=== PATIENT | female | born 1965 | race African-American/Black ===

== ENCOUNTER 2017-04-06 15:28 | Emergency (ER) | payer MEDICARE, MEDICAID ==
[~2017-04-06] VITALS: Ht 157.5 cm; Wt 104.4 kg
[~2017-04-06 15:28] MED LIST: COMB0.2S EACH EYE; HYDR50CA PO; PROP20TA3 PO; TRIH5TAB2 PO; ZIPR1CAP12 PO
[2017-04-06 15:35] VITALS: BP 147/72; PULSE 76; RESP 16; TEMP 98.1; O2SAT 96
[2017-04-06] MEDS ORDERED: PERM5CRE11 TOPICAL (16:03)
--- NOTE | 2017-04-06 16:05 | PD ---
HPI Chief Complaint: Skin Problem Time Seen by Provider: 15:57 Travel History International Travel<30 days: No Contact w/Intl Traveler<30days: No Traveled to known affect area: No History of Present Illness HPI 51-year-old female presents emergency department requesting treatment of scabies. Patient reports her daughter who is a healthcare worker was diagnosed with scabies several days ago and they were instructed on family members needed to be treated. Patient reports she does not have a rash but has itching between the webs of her fingers. She has no other medical complaint. PFSH Past Medical History Bipolar Disorder: Yes Depression: Yes Diabetes: Yes (HUMULIN 70/30) Patient Takes Glucophage: No Diminished Hearing: No Psychiatric: Yes Reproductive: Yes Immunizations Current: Yes Tetanus Vaccination: Unknown Influenza Vaccination: No ?: Not Menopausal: Yes : 3 Para: 2 : 1 Tubal Ligation: Yes Past Surgical History Abdominal Surgery: No Cardiac Surgery: No Ear Surgery: No Endocrine Surgery: No Eye Surgery: No Genitourinary Surgery: No Gynecologic Surgery: Yes Oral Surgery: No Thoracic Surgery: No Other Surgery: Yes (1995 GENITAL WARTS) Social History Alcohol Use: No Tobacco Use: No Substance Use: No Allergies-Medications (Allergen,Severity, Reaction): Coded Allergies: Sulfa (Sulfonamide Antibiotics) (Unverified Allergy, Severe, HIVES, ) aspirin (Unverified Allergy, Severe, HEADACHE, 02/24/17) Reported Meds & Prescriptions Reported Meds & Active Scripts Active Elimite Topical (Permethrin) 5% Cream 1 Applic TOPICAL ONCE Combigan Opth Drops (Brimonidine-Timolol Opth Drops) 0.2-0.5% Soln 1 Drop EACH EYE BID Reported Hydroxyzine Pamoate 50 Mg Cap 50 Mg PO HS Ziprasidone 80 Mg Cap 80 Mg PO DAILY Trihexyphenidyl (Trihexyphenidyl HCl) 5 Mg Tab 10 Mg PO DAILY Propranolol (Propranolol HCl) 20 Mg Tab 20 Mg PO DAILY Review of Systems Except as stated in HPI: all other systems reviewed are Neg Physical Exam Narrative GENERAL: Well-nourished, well-developed patient. SKIN: Focused skin assessment warm/dry. HEAD: Normocephalic. EYES: No scleral icterus. No injection or drainage. NECK: Supple, trachea midline. No JVD or lymphadenopathy. CARDIOVASCULAR: Regular rate and rhythm without murmurs, gallops, or rubs. RESPIRATORY: Breath sounds equal bilaterally. No accessory muscle use. Data Data Last Documented VS Vital Signs Date Time Temp Pulse Resp B/P (MAP) Pulse Ox O2 Delivery O2 Flow Rate FiO2 04/06/17 15:35 98.1 76 16 147/72 (97) 96 MDM Medical Decision Making Medical Screen Exam Complete: Yes Emergency Medical Condition: Yes Differential Diagnosis Scabies exposure Narrative Course 51-year-old female presents emergency department requesting treatment of scabies. Her daughter who lives with her diagnosed with scabies several days ago. Patient denies rash reports some itching to the webs of her fingers. Patient will be given prescription for Elimite. Scabies treatment discussed with patient and family. Diagnosis Primary Impression: Scabies exposure Referrals: [facility] Scripts Permethrin Topical (Elimite Topical) 5% Cream 1 APPLIC TOPICAL ONCE for Scabies, #1 TUBE 0 Refills Prov: Stacy Gilliam 04/06/17 Disposition: 01 DISCHARGE HOME Condition: Stable Stcay Gilliam Apr 06, 2017 16:05
[2017-04-21] MEDS ORDERED: COMB0.2S EACH EYE ×2 (09:15→09:20)
== END 2017-04-06 16:20 | disposition home or self-care (01) ==
LOC: PHEFT 15:28
DX: B86 Scabies (principal)
CPT/HCPCS: 99283